=== PATIENT | male | born 1990 | race Caucasian/White ===

== ENCOUNTER 2017-08-17 16:27 | Emergency (ER) | payer SELFPAY ==
[~2017-08-17] VITALS: Ht 180.3 cm; Wt 68.0 kg
[2017-08-17 19:10] VITALS: BP 116/70
== END 2017-08-17 19:10 | disposition home or self-care (01) ==
LOC: ED 16:27
DX: S16.1XXA Strain of muscle, fascia and tendon at neck level, initial encounter (principal); S39.012A Strain of muscle, fascia and tendon of lower back, initial encounter; V43.92XA Unspecified car occupant injured in collision with other type car in traffic accident, initial encounter; Y93.89 Activity, other specified; Y99.8 Other external cause status; Y92.89 Other specified places as the place of occurrence of the external cause
CPT/HCPCS: J1170; J1885